=== PATIENT | female | born 1955 | race African-American/Black ===

== ENCOUNTER 2017-04-06 12:27 | Emergency (ER) | payer OTHER ==
[~2017-04-06] VITALS: Ht 165.1 cm; Wt 81.6 kg
[2017-04-06] MEDS ORDERED: KETOROLAC TROMETH 60MG/2ML VIAL IM ONE (13:30)
[2017-04-06 14:30] VITALS: BP 193/88
== END 2017-04-06 14:51 | disposition home or self-care (01) ==
LOC: ER 12:27
DX: S90.02XA Contusion of left ankle, initial encounter (principal); S80.01XA Contusion of right knee, initial encounter; I10 Essential (primary) hypertension; W19.XXXA Unspecified fall, initial encounter; Y93.89 Activity, other specified; Y99.8 Other external cause status; Y92.89 Other specified places as the place of occurrence of the external cause; Z88.0 Allergy status to penicillin; Z88.6 Allergy status to analgesic agent
CPT/HCPCS: 73502; 73564; 73610; 96372; 99284; J1885